=== PATIENT | female | born 1995 | race Caucasian/White ===

== ENCOUNTER 2024-05-28 11:54 | Inpatient (IN) | payer BC ==
[2024-05-28 12:43] VITALS: BMI 23.6
[2024-05-28] MEDS ORDERED: POLYETHYLENE GLYCOL (HEALTHYLAX) 3350 17 GM PACKET PO PRN (15:58)
[2024-05-28] MEDS ORDERED: NALOXONE (NARCAN) HCL 4 MG/0.1 ML SPRAY NS PRN (15:58)
[2024-05-28] MEDS ORDERED: LOPERAMIDE HCL 2 MG CAPSULE PO PRN (15:58)
[2024-05-28] MEDS ORDERED: BENZOCAINE/MENTHOL (CHLORASEPTIC ) LOZENGE MM PRN (15:58)
[2024-05-28] MEDS ORDERED: IBUPROFEN 600 MG TABLET (FP) PO PRN (15:58)
[2024-05-28] MEDS ORDERED: BENZONATATE 200 MG CAPSULE PO PRN (15:58)
[2024-05-28] MEDS ORDERED: IBUPROFEN 400 MG TABLET (FP) PO PRN (15:58)
[2024-05-28] MEDS ORDERED: DICYCLOMINE HCL 10 MG CAPSULE PO PRN (15:58)
[2024-05-28] MEDS ORDERED: ONDANSETRON *ODT* 4 MG TABLET SL PRN (15:58)
[2024-05-28] MEDS ORDERED: guaiFENesin 600 MG TABLET.ER (FP) PO PRN (15:58)
[2024-05-28] MEDS ORDERED: NALOXONE (NYS OPIOID OVERDOSE PROGRAM) 4 MG/0.1 ML SPRAY NS PRN (15:58)
[2024-05-28] MEDS ORDERED: MAG HYDROX/AL HYDROX/SIMETH 30 ML UNIT-DOSE CUP PO PRN (15:58)
[2024-05-28] MEDS ORDERED: BISMUTH SUBSALICYLATE 524 MG/30 ML PO PRN (15:58)
[2024-05-28] MEDS ORDERED: MAGNESIUM HYDROX 2400MG/30ML ORAL SUSPENSION 30 ML CUP PO PRN (15:58)
[2024-05-28] MEDS ORDERED: ACETAMINOPHEN 325 MG TABLET (FP) PO PRN (15:58)
[2024-05-28] MEDS ORDERED: NICOTINE 21 MG/24 HOURS TOPICAL PATCH ONE (16:44)
[2024-05-28] MEDS ORDERED: methaDONE HCL 10 MG TABLET (FOR DETOX USE ONLY) ONE (16:44)
[2024-05-28] MEDS: PRENATAL VITAMINS W/ FOLIC ACID TABLET (FP) PO SCH (16:52)
[2024-05-28] MEDS: methaDONE HCL 10 MG TABLET PO ONE (16:52)
[2024-05-28] MEDS: NICOTINE 14 MG/24 HOURS TOPICAL PATCH TD SCH (17:27)
[2024-05-28] MEDS ORDERED: NICOTINE 14 MG/24 HOURS TOPICAL PATCH TD ONE (17:46)
[2024-05-28] MEDS: cloNIDine HCL 0.1 MG TABLET PO SCH (17:53)
[2024-05-28] MEDS ORDERED: methaDONE HCL 10 MG TABLET PO PRN (17:58)
[2024-05-28] MEDS: THIAMINE 100 MG TABLET PO SCH (21:59)
[2024-05-28] MEDS: MELATONIN 5 MG TABLETS PO SCH (21:59)
[2024-05-29] MEDS: methaDONE 40 MG, methaDONE 10 MG PO ONE (09:16)
[2024-05-30] MEDS ORDERED: cloNIDine HCL 0.1 MG TABLET PO PRN
[2024-05-30] MEDS: methaDONE 40 MG, methaDONE 20 MG PO ONE (09:23)
[2024-05-31] MEDS: METHOCARBAMOL 500 MG TABLET PO PRN (10:02)
[2024-05-31] MEDS: hydrOXYzine PAMOATE 25 MG CAPSULE (FP) PO PRN (10:02)
[2024-05-31] MEDS: methaDONE 40 MG, methaDONE 30 MG PO ONE (10:02)
[2024-06-01] MEDS: methaDONE HCL 40 MG DISPERSABLE TABLET PO ONE (09:33)
[2024-06-01] MEDS: NALOXONE (NYS OPIOID OVERDOSE PROGRAM) 4 MG/0.1 ML SPRAY NS SCH (10:40)
[2024-06-02 09:09] VITALS: BP 134/86; PULSE 80; RESP 18; TEMP 98.7
[2024-06-02] MEDS: methaDONE 80 MG, methaDONE 10 MG PO ONE (10:58)
== END 2024-06-02 09:24 | disposition home or self-care (01) | DRG 773 ==
LOC: YASAS 11:54 → Y6N 16:54
PROVIDERS: ADMIT Allergy & Immunology; ATTEND Surgery
PROC: HZ2ZZZZ Detoxification Services for Substance Abuse Treatment (ICD-10-PCS; principal; 2024-05-28)
DX: F11.23 Opioid dependence with withdrawal (principal); F14.20 Cocaine dependence, uncomplicated; F13.10 Sedative, hypnotic or anxiolytic abuse, uncomplicated; F17.210 Nicotine dependence, cigarettes, uncomplicated
CPT/HCPCS: 80305; 80307; 81025; 93005; 93010